=== PATIENT | female | born 1995 | race Caucasian/White ===

== ENCOUNTER 2017-01-17 02:23 | Emergency (ER) | payer BC ==
[~2017-01-17] VITALS: Ht 167.6 cm; Wt 51.3 kg
[2017-01-17 02:30] VITALS: TEMP 36.8; Ht 167.6 cm; Wt 51.3 kg
[2017-01-17] MEDS ORDERED: ALPR-411 PO (03:01)
[2017-01-17] MEDS ORDERED: GABAPENTIN 100 MG CAP PO STA (03:01)
--- NOTE | 2017-01-17 03:15 | EMERGENCY ROOM VISIT NOTE ---
History Report prepared by Hipolito: Deepak Schwarz Under the Supervision of: Dr. Nia Gallegos D.O. First contact with patient: 02:45 Chief Complaint: FOOT PAIN Stated Complaint: BURNING FEET,SHAKY,LIGHT HEADED History of Present Illness The patient is a 21 year old female who presents to the Emergency Room with complaints of waxing and waning "burning" sensations in her feet. The patient states that it feels as though her feet are on fire, even through they are cool to the touch. She has been experiencing this issue for over a year. The burning does not present with any discoloration or cramping. Denies any swelling. The patient has seen her PCP for this issue. He has tested her for diabetes and placed her on Amitriptyline for nerve pain. She states she is no longer taking amitriptyline. She is also on Xanax for anxiety. Her mother was diagnosed with Raynaud's. Patient denies noticing any particular triggers for the burning, however seems to note it happens more when her feet are cold or when she is in the shower. Source of History: patient Onset: One year ago Position: foot (bilateral) Quality: burning Timing: waxes/wanes Note: Denies cramping or discoloration. Review of Systems See HPI for pertinent positives & negatives. A total of 6 systems reviewed and were otherwise negative. Past Medical & Surgical Medical Problems: (1) Anxiety Anxiety Family History Diabetes mellitus FHx: cancer Gallbladder disease Heart disease Hypertension Social History Smoking Status: Never Smoker Marital Status: single Housing Status: lives with friends Occupation Status: employed Current/Historical Medications Scheduled Gabapentin (Neurontin), 100 MG PO Q8 Scheduled PRN Alprazolam (Xanax), 0.5 MG PO DAILY PRN for Anxiety Allergies Coded Allergies: No Known Allergies (Unverified , 01/17/17) Physical Exam Vital Signs Date Time Temp Pulse Resp B/P (MAP) Pulse Ox O2 Delivery O2 Flow Rate FiO2 01/17/17 04:02 70 18 110/58 99 01/17/17 02:30 36.8 92 20 121/86 99 Room Air Physical Exam GENERAL: alert, well appearing, well nourished, no distress, non-toxic SKIN: no rashes and no bruising UPPER EXTREMITIES: upper extremities are grossly normal. LOWER EXTREMITIES: No pitting edema. Normal bilaterally DP and PT normal capillary refill. Normal appearance. No edema no deformities. Feet are cool to the touch. NEURO EXAM: Normal sensorium. Medical Decision & Procedures Laboratory Results 01/17/17 03:09 Test 01/17/17 03:09 Anion Gap 8.0 mmol/L (3-11) Est Creatinine Clear Calc Drug Dose 67.5 ml/min Estimated GFR () 86.7 Estimated GFR (Non- 74.8 BUN/Creatinine Ratio 15.4 (10-20) Calcium Level 9.3 mg/dl (8.5-10.1) Magnesium Level 2.2 mg/dl (1.8-2.4) Laboratory results per my review. Medications Administered Medications (Trade) Dose Ordered Sig/Zuleika Route Start Time Stop Time Status Last Admin Dose Admin Gabapentin (Neurontin Cap) 100 mg NOW STAT PO 01/17/17 03:01 01/17/17 03:03 DC 01/17/17 03:22 100 MG ED Course 0247: The patient was evaluated in room B3. A complete history and physical exam was performed. 0301: Ordered Gabapentin 100 mg PO. 0430: Upon reevaluation, the patient is feeling better. I discussed the findings and the treatment plan with the patient. She verbalizes agreement and understanding. The patient was discharged home. Medical Decision Differential Diagnosis: Peripheral neuropathy, arteria occlusion, vasospasm, vasculitis, trauma, gout. Patient well-appearing here, I do not suspect acute arterial occlusion, patient with normal cap refill and strong radial pulses bilaterally. I feel more likely given the history this could be rate nods in this patient given family history. No recent trauma, and no symptoms and presentations to suggest need for additional imaging including Doppler. I do not suspect DVT. No evidence of infectious etiology. Patient hemodynamically stable here. Patient with agreeable with trial of gabapentin for paresthesias. Discussed symptoms to watch and return for, she verbalized understanding was agreeable with plan. Medication Reconcilliation Current Medication List: was personally reviewed by me Blood Pressure Screening Patient's blood pressure: Normal blood pressure Impression Primary Impression: Foot pain Additional Impression: Paresthesias Scribe Attestation The scribe's documentation has been prepared under my direction and personally reviewed by me in its entirety. I confirm that the note above accurately reflects all work, treatment, procedures, and medical decision making performed by me. Departure Information Dispostion Home / Self-Care Prescriptions Gabapentin (Neurontin) 100 Mg Cap 100 MG PO Q8 for Pain, #30 CAP Prov: Nia Gallegos, DO 01/17/17 Referrals No Doctor, Assigned (PCP) Patient Instructions My [facility] Additional Instructions Please follow up with your family doctor as a precaution. You may use pain medication as directed. If you have any worsening pain, persistent discoloration, swelling, rashes or sores, fevers, joint pain or swelling, or you have any other new concerns, please return the emergency room. Problem Qualifiers Primary Impression: Foot pain Laterality: bilateral Qualified Codes: M79.671 - Pain in right foot; M79.672 - Pain in left foot
[2017-01-17 03:36] LABS: BUN/CREATININE RATIO 15.4 (10-20); CALCIUM 9.3 mg/dl (8.5-10.1); CREATININE 1.05 mg/dl (0.60-1.20); MAGNESIUM 2.2 mg/dl (1.8-2.4); POTASSIUM 3.9 mmol/L (3.5-5.1)
[2017-01-17] MEDS ORDERED: NRN/100 PO (03:55)
[2017-01-17 04:02] VITALS: BP 110/58; PULSE 70; O2SAT 99
== END 2017-01-17 04:03 | disposition home or self-care (01) ==
LOC: C.EDB 02:25
DX: M79.671 Pain in right foot (principal); M79.672 Pain in left foot; R20.2 Paresthesia of skin; Z83.3 Family history of diabetes mellitus; Z82.49 Family history of ischemic heart disease and other diseases of the circulatory system